=== PATIENT | female | born 1995 | race Caucasian/White ===

== ENCOUNTER 2023-11-18 09:02 | Day surgery (SDC) | payer OTHER ==
[2023-11-17 09:39] LABS: HCG,QUAL RESULT NEGATIVE (NEGATIVE)
[~2023-11-18] VITALS: Ht 157.5 cm; Wt 99.8 kg
[2023-11-18] MEDS ORDERED: POTASSIUM IODIDE/IODINE 14 ML SOLUTION (LUGOL'S) ONE (09:03)
[2023-11-18 11:54] VITALS: O2SAT 96
[2023-11-18] MEDS ORDERED: PROPOFOL 200MG/ 20ML VIAL (DIPRIVAN) IV ONE (12:02)
[2023-11-18] MEDS ORDERED: WATER FOR IRRIGATION,STERILE 1,000 ML IRRIG.SOLN IR ONE (12:02)
[2023-11-18] MEDS ORDERED: ONDANSETRON HCL 4 MG/2 ML VIAL ONE (12:02)
[2023-11-18] MEDS ORDERED: MIDAZOLAM HCL 2 MG/2 ML VIAL (VERSED) ONE (12:02)
[2023-11-18] MEDS ORDERED: fentaNYL CITRATE/PF 100 MCG/2 ML AMP ONE (12:02)
[2023-11-18] MEDS ORDERED: LR 1,000 ML IV.SOLN IV ONE (12:02)
[2023-11-18] MEDS ORDERED: SEVOFLURANE 15 MIN GAS INH ONE (12:02)
[2023-11-18] MEDS ORDERED: DEXAMETHASONE SOD PHOSPHATE 4 MG/ML VIAL ONE (12:02)
[2023-11-18] MEDS ORDERED: HYDROmorphone 1 MG/ML INJ. CARTRIDGE IVP PRN (13:00)
[2023-11-18] MEDS ORDERED: METOCLOPRAMIDE HCL 10 MG/2 ML VIAL IVP PRN (13:00)
[2023-11-18] MEDS ORDERED: ONDANSETRON HCL 4 MG/2 ML VIAL IVP PRN (13:00)
[2023-11-18] MEDS ORDERED: KETOROLAC TROMETHAMINE 30 MG VIAL IVP PRN (13:00)
[2023-11-18 16:15] VITALS: BP_SYST 12; PULSE 74; RESP 18
== END 2023-11-18 14:29 | disposition home or self-care (01) ==
LOC: SDS 09:02 → SMU 09:03 → SDS 14:29
PROVIDERS: ATTEND Obstetrics & Gynecology
DX: N87.1 Moderate cervical dysplasia (principal); E66.01 Morbid (severe) obesity due to excess calories; Z68.41 Body mass index [BMI] 40.0-44.9, adult
CPT/HCPCS: 84703; 87081; 57522; J1100; J3465; J2405; J2704; J3010; J7120; 88305; 88307